=== PATIENT | male | born 1990 | race Native Hawaiian/Other Pacific Islander ===

== ENCOUNTER 2018-11-19 19:01 | Emergency (ER) | payer BC ==
[2018-11-19 19:09] VITALS: BP 127/75
--- NOTE | 2018-11-19 19:13 | Event Note ---
ED Screening Note Date of service: 11/19/18 Time: 19:09 ED Screening Note: This is a 28 y.o. M. that presents to the ER with dysuria, penile discharge, and left testicular pain x 3 weeks. This initial assessment/diagnostic orders/clinical plan/treatment(s) is/are subject to change based on patients health status, clinical progression and re- assessment by fellow clinical providers in the ED. Further treatment and workup at subsequent clinical providers discretion. Patient/guardian urged not to elope from the ED as their condition may be serious if not clinically assessed and managed. Initial orders include: UA
[2018-11-19 19:34] LABS: Bilirubin,Urine NEG (Negative); Blood,Urine NEG (Negative); Color,Urine Colorless (Yellow); Protein,Urine <15 mg/dL mg/dL (Negative); Urobilinogen,Urine < 2.0 mg/dL (<2.0); WBC,Urine < 1.0 /HPF (0.0-6.0)
[2018-11-19] MEDS ORDERED: ROCEPHIN IM ONE (21:02)
[2018-11-19] MEDS ORDERED: ZITHROMAX PO ONE (21:02)
[2018-11-19] MEDS ORDERED: XYLOCAINE 1% MPF 5 mL INFILTRATI ONE (21:02)
--- NOTE | 2018-11-19 21:08 | Emergency Department Report ---
ED Male HPI - General Chief complaint: Urogenital-Male Stated complaint: PELVIC PAIN Time Seen by Provider: 11/19/18 19:08 Source: patient Mode of arrival: Ambulatory Limitations: No Limitations - History of Present Illness Initial comments: Patient is a 28-year-old male who presents for PE discharge white thick dysuria frequency and urgency 2 weeks states last unprotected sex 15 days ago states now with left testicular tenderness to palpation. no swelling or erythema ,no abdominal pain, no nausea vomiting ,no fever chills. MD Complaint: testicle pain (left testical tenderness.), penile discharge (white thick ), dysuria Onset/Timin -: week(s) Location: penis, left testicle Radiation: none Severity: moderate Severity scale (0 -10): 4 Quality: burning Consistency: intermittent Improves with: none Worsens with: urination new sexual partner discharge, dysuria. denies: swelling, mass, rash, urinary retention, blood in urine, fever, nausea/vomiting, incontinence - Related Data Sexually active: Yes Previous Rx's Medication Instructions Recorded Last Taken Type Ibuprofen [Motrin] 600 mg PO Q8H PRN #30 tablet 09/17/13 Unknown Rx Loratadine [Claritin] 10 mg PO DAILY #30 tablet 09/17/13 Unknown Rx Sulfamethoxazole/Trimethoprim 1 each PO BID #20 tablet 09/17/13 Unknown Rx [Bactrim Ds] predniSONE [Deltasone] 20 mg PO QDAY #5 tab 09/17/13 Unknown Rx Doxycycline Hyclate [Doxycycline 20 mg PO BID 10 Days #20 tablet 11/19/18 Unknown Rx Hyclate TAB] Allergies Allergy/AdvReac Type Severity Reaction Status Date / Time No Known Allergies Allergy Verified 09/16/13 22:52 ED Review of Systems ROS: Stated complaint: PELVIC PAIN Other details as noted in HPI Constitutional: denies: chills, fever Eyes: denies: eye pain, eye discharge, vision change ENT: denies: ear pain, throat pain Respiratory: denies: cough, shortness of breath, wheezing Cardiovascular: denies: chest pain, palpitations Endocrine: no symptoms reported Gastrointestinal: denies: abdominal pain, nausea, vomiting, diarrhea Genitourinary: urgency, dysuria, frequency, hematuria, testicular pain. denies: discharge, testicular mass Musculoskeletal: denies: back pain, joint swelling, arthralgia Skin: denies: rash, lesions Neurological: denies: headache, weakness, paresthesias Psychiatric: denies: anxiety, depression Hematological/Lymphatic: denies: easy bleeding, easy bruising ED Past Medical Hx - Past Medical History Previous Medical History?: No - Surgical History Past Surgical History?: No Hx Appendectomy: Yes - Social History Smoking Status: Unknown if ever smoked Substance Use Type: None - Medications Home Medications: Home Medications Medication Instructions Recorded Confirmed Last Taken Type Ibuprofen [Motrin] 600 mg PO Q8H PRN #30 tablet 09/17/13 Unknown Rx Loratadine [Claritin] 10 mg PO DAILY #30 tablet 09/17/13 Unknown Rx Sulfamethoxazole/Trimethoprim 1 each PO BID #20 tablet 09/17/13 Unknown Rx [Bactrim Ds] predniSONE [Deltasone] 20 mg PO QDAY #5 tab 09/17/13 Unknown Rx Doxycycline Hyclate [Doxycycline 20 mg PO BID 10 Days #20 tablet 11/19/18 Unknown Rx Hyclate TAB] ED Physical Exam - General Limitations: No Limitations General appearance: alert, in no apparent distress - Head Head exam: Present: atraumatic, normocephalic - Eye Eye exam: Present: normal appearance, PERRL, EOMI Pupils: Present: normal accommodation - ENT ENT exam: Present: mucous membranes moist - Neck Neck exam: Present: normal inspection, full ROM. Absent: tenderness - Respiratory Respiratory exam: Present: normal lung sounds bilaterally. Absent: respiratory distress - Cardiovascular Cardiovascular Exam: Present: regular rate, normal rhythm, normal heart sounds. Absent: systolic murmur, diastolic murmur, rubs, gallop - GI/Abdominal GI/Abdominal exam: Present: soft, normal bowel sounds. Absent: distended, tenderness, bruit, hernia - Rectal Rectal exam: Present: deferred - exam: Present: normal inspection, testicular tenderness (left epididymal tenderness no swelling no erythema no high riding testical no groin lymph, ), urethral discharge (white yellow ), circumcision. Absent: scrotal swelling, vertical testicular lie External exam: Present: normal external exam. Absent: erythema, swelling, lesions, lacerations, ecchymosis, bleeding - Extremities Exam Extremities exam: Present: normal inspection, full ROM, normal capillary refill - Back Exam Back exam: Present: normal inspection, full ROM. Absent: tenderness, CVA tenderness (R), CVA tenderness (L), rash noted - Neurological Exam Neurological exam: Present: alert, oriented X3, CN II-XII intact, normal gait, reflexes normal. Absent: motor sensory deficit - Psychiatric Psychiatric exam: Present: normal affect, normal mood - Skin Skin exam: Present: warm, dry, intact, normal color. Absent: rash ED Course Vital Signs 11/19/18 19:08 Temperature 98.2 F Pulse Rate 63 Respiratory 16 Rate Blood Pressure 127/75 O2 Sat by Pulse 96 Oximetry ED Medical Decision Making - Medical Decision Making This is STI,epidymitis, Pt confirmed unprotected sex with new partner with symptoms. this is not testicular torsion there is no swelling , no lymph, no fever no abd pain. Ua noted normal, plan: tx for STI rocephin, azithromycin, dc to home with doxycycline, follow up with health department or pcp for HIV, HSV and syphilis screening, tp verbalized agreement and understanding of discharge plan, Critical care attestation.: If time is entered above; I have spent that time in minutes in the direct care of this critically ill patient, excluding procedure time. ED Disposition Clinical Impression: STI (sexually transmitted infection), Epididymitis, left Disposition: [id number] TO HOME OR SELFCARE Is pt being admited?: No Does the pt Need Aspirin: No Condition: Stable Instructions: Epididymitis (ED), Sexually Transmitted Diseases (ED) Prescriptions: Doxycycline Hyclate [Doxycycline Hyclate TAB] 20 mg PO BID 10 Days #20 tablet Referrals: PRIMARY CARE, [Primary Care Provider] - 3-5 Days Forms: STI Treatment and Prevention Time of Disposition: 21:15
== END 2018-11-19 21:43 | disposition home or self-care (01) ==
LOC: ED 19:01
DX: A64 Unspecified sexually transmitted disease (principal); N45.1 Epididymitis; Z90.49 Acquired absence of other specified parts of digestive tract; Z79.899 Other long term (current) drug therapy
CPT/HCPCS: 81001; 96372; 99283; J0696